=== PATIENT | male | born 1970 | race Caucasian/White ===

== ENCOUNTER 2019-09-26 09:15 | Emergency (ER) | payer MEDICAID, OTHER ==
[~2019-09-26] VITALS: Ht 175.3 cm; Wt 104.5 kg
--- NOTE | 2019-09-26 09:44 | NUR ---
PT SENT FROM URGENT CARE FOR DIZZINESS AND HTN. PT ARRIVED TO ROOM 19, DRESSED IN GOWN AND ATTACHED TO MONITOR. PT AAO X 4, NAD, ROOM AIR, CALL LIGHT WITHIN REACH. PT STATES DECREASED HEARING IN RIGHT EAR THAT STARTED YESTERDAY, PT DESCRIBES IT "FEELING LIKE IT NEEDS TO POP." PT ALSO STATES, "AT URGENT CARE I HAD HIGH BLOOD PRESSURE AND I DON'T HAVE A HISTORY OF IT." SIDERAIL X [address] EKG COMPLETED IN TRIAGE. PA AT BEDSIDE FOR EXAM.
[2019-09-26] MEDS ORDERED: MECLIZINE CHEWABLE 25 MG TAB ONE (09:49)
--- NOTE | 2019-09-26 09:51 | NUR ---
PT MEDICATED PER ORDERS, DISCUSSED WITH PA REGARDING ORDERS, ORDERS CANCELLED.
[2019-09-26] MEDS ORDERED: MECLIZINE 25 MG TABLET PO ONE (10:00)
[2019-09-26] MEDS ORDERED: SODIUM CHLORIDE FLUSH 10ML SYR IVF ONE (10:00)
[2019-09-26] MEDS ORDERED: ASPIRIN 81 MG TABLET CHEW PO ONE (10:00)
[2019-09-26 10:18] LABS: BASOPHILS # (AUTO) 0.07 x10^3/uL (0-0.1); BASOPHILS % (AUTO) 2 % (0-1); EOSINOPHILS % (AUTO) 6 % (1-7); LYMPHOCYTES # (AUTO) 1.31 x10^3/uL (1-3.4); LYMPHOCYTES % (AUTO) 26 % (22-44); MD NO; MEAN CORPUSCULAR HEMOGLOBIN 31.4 pg (27.5-34.5); MEAN CORPUSCULAR HGB CONC 34.6 g/dL (33.2-36.2); MEAN CORPUSCULAR VOLUME 90.6 fL (81-97); MEAN PLATELET VOLUME 8.7 fL (7.4-10.4); MONOCYTES # (AUTO) 0.42 x10^3/uL (0.2-0.8); MONOCYTES % (AUTO) 9 % (2-9); NEUTROPHILS # (AUTO) 2.84 x10^3/uL (1.8-6.8); NEUTROPHILS % (AUTO) 58 % (42-75); PLATELET COUNT 237 x10^3/uL (130-400); RED CELL DISTRIBUTION WIDTH 12.9 % (9.4-14.8)
[2019-09-26 10:27] LABS: ALBUMIN 3.7 g/dL (3.4-5.0); ANION GAP 6 mmol/L (5-15); CALCIUM 8.5 mg/dL (8.5-10.1); CHLORIDE 106 mmol/L (98-107)
[2019-09-26 10:31] LABS: TROPONIN I < 0.015 ng/mL (0.000-0.045)
--- NOTE | 2019-09-26 10:36 | NUR ---
ALL RESULTS BACK AT THIS TIME, CHART UP FOR RECHECK.
[2019-09-26 10:46] VITALS: BP 143/88
--- NOTE | 2019-09-26 11:46 | NUR ---
DR. CEBALLOS AT BEDSIDE FOR REASSESSMENT, PLAN FOR D/C.
--- NOTE | 2019-09-26 12:17 | NUR ---
Patient/Caregiver given discharge instructions and they have confirmed that they understand the instructions. Patient ambulatory with steady gait.
== END 2019-09-26 12:19 | disposition home or self-care (01) ==
LOC: ED 10:02
DX: R42 Dizziness and giddiness (principal); H65.01 Acute serous otitis media, right ear; I10 Essential (primary) hypertension; F17.200 Nicotine dependence, unspecified, uncomplicated
CPT/HCPCS: 36415; 71045; 80048; 82040; 83880; 84484; 85025; 93005; 99284